=== PATIENT | male | born 1970 | race African-American/Black ===

== ENCOUNTER 2018-03-18 14:57 | Emergency (ER) | payer OTHER, BC ==
[2018-03-18 15:17] LABS: EOSINOPHIL (%) 4.3 % (0-5); EOSINOPHIL COUNT 0.2 K/uL (0-0.3); HEMATOCRIT 36.9 % (38.0-50.0); HEMOGLOBIN 13.2 G/DL (12.5-16.6); LYMPHOCYTE (%) 37.5 % (15-42); LYMPHOCYTE COUNT 1.5 K/uL (1.0-2.8); MCHC 35.8 G/DL (30.0-36.0); MCV 89.3 FL (86-99); MONOCYTE (%) 12.6 % (3-12); MONOCYTE COUNT 0.5 K/uL (0-0.8); NEUTROPHIL (%) 44.6 % (45-76); NEUTROPHIL COUNT 1.8 K/uL (1.8-6.4); PLATELET COUNT 254 K/uL (156-360); RBC DIS.WIDTH-CV 12.5 % (11.8-14.6); RBC DIS.WIDTH-SD 41.2 % (39-53); RED BLOOD COUNT 4.13 M/uL (4.00-5.50)
[2018-03-18 15:31] LABS: AMYLASE 45 IU/L (1-118); CHLORIDE 104 mEq/L (99-109); POTASSIUM 4.2 mEq/L (3.7-5.4); SODIUM 139 mEq/L (136-147)
[2018-03-18 15:33] LABS: GLUCOSE 127 mg/dL (70-99)
[2018-03-18 15:36] LABS: SERUM ETHYL ALCOHOL < 10 mg/dL
[2018-03-18 15:37] LABS: CREATININE 1.5 mg/dL (0.6-1.3); UREA NITROGEN (BUN) 15 mg/dL (9-23)
[2018-03-18 15:39] LABS: GFR ESTIMATE (CALCULATED) 53 mL/min/ (58.99-99999)
[2018-03-18 15:40] LABS: LIPASE 31 U/L (1.0-51.0)
[2018-03-18] MEDS ORDERED: ROBAXIN500 MG PO (17:45)
[2018-03-18] MEDS ORDERED: MOTRIN600 MG PO (17:45)
== END 2018-03-18 18:23 | disposition home or self-care (01) ==
LOC: TRA 14:57
PROVIDERS: Emergency Medicine
DX: S13.9XXA Sprain of joints and ligaments of unspecified parts of neck, initial encounter (principal); S06.0X0A Concussion without loss of consciousness, initial encounter; V49.40XA Driver injured in collision with unspecified motor vehicles in traffic accident, initial encounter; Y92.410 Unspecified street and highway as the place of occurrence of the external cause; F17.200 Nicotine dependence, unspecified, uncomplicated; Z91.011 Allergy to milk products
CPT/HCPCS: 70450; 71260; 72125; 72129; 72132; 74177; 80048; 81003; 82150; 83690; 85025; 86850; 86900; 86901; 99281; 99285; G0480; J1885; J7030